=== PATIENT | male | born 2000 | race Caucasian/White ===

== ENCOUNTER 2021-12-25 23:27 | Emergency (ER) | payer MEDICAID ==
[~2021-12-25] VITALS: Ht 167.6 cm; Wt 74.8 kg
[2021-12-26] MEDS ORDERED: IOHEXOL 300 MG/ML 100ML BOTTLE IJ ONE (06:52)
[2021-12-26 07:16] LABS: Basophils # (auto) 0.1 10 ^3/uL (0-0.2); Basophils % (auto) 0.8 % (0.0-2.0); Eosinophils # (auto) 0.1 10 ^3/uL (0-0.8); Eosinophils % (auto) 1.4 % (0.0-7.0); Hematocrit 49.7 % (41.0-53.0); Hemoglobin 16.6 g/dL (13.5-17.5); Lymphocytes # (auto) 0.9 10 ^3/uL (0.4-5.4); Lymphocytes % (auto) 9.7 % (10.0-50.0); Mean Corpuscular Hemoglobin 29.7 pg (28.0-32.0); Mean Corpuscular Hgb Conc. 33.4 g/dL (32.0-36.0); Mean Corpuscular Volume 88.8 fL (80.0-100.0); Monocytes # (auto) 0.3 10 ^3/uL (0-1.3); Monocytes % (auto) 3.8 % (0.0-12.0); Neutrophils # (auto) 7.4 10 ^3/uL (1.6-8.6); Neutrophils % (auto) 84.3 % (37.0-80.0); Nucleated Red Blood Cells % 0.1 %; White Blood Cell 8.8 10^3/uL (4.4-10.8)
[2021-12-26 07:23] LABS: Albumin 3.7 g/dL (3.4-5.0); BUN/Creatinine Ratio 6.6; Calcium 8.6 mg/dL (8.5-10.1); Potassium 3.7 mmol/L (3.5-5.1)
[2021-12-26 07:26] LABS: Bilirubin, Total 0.5 mg/dL (0.2-1.0); Total Protein 7.3 g/dL (6.4-8.2)
[2021-12-26 07:52] VITALS: BP 135/78
[2021-12-26] MEDS ORDERED: IBUP800T27 PO (08:14)
[2021-12-26] MEDS ORDERED: AMOX-277 PO (08:14)
== END 2021-12-26 08:20 | disposition home or self-care (01) ==
LOC: ER 23:27
DX: Q18.1 Preauricular sinus and cyst (principal)
CPT/HCPCS: 36415; 70450; 80053; 85025; 99284; Q9967